=== PATIENT | female | born 2000 | race Caucasian/White ===

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

== ENCOUNTER 2020-03-27 10:01 | Emergency (ER) | payer BC ==
[2020-03-27 10:11] VITALS: BP 123/84; PULSE 69
[2020-03-27] MEDS ORDERED: Ondansetron 4 MG/2 ML SDV IVPUSH ONE (10:36)
[2020-03-27] MEDS ORDERED: HYDROmorphone 0.5 MG/0.5 ML Syringe IVPUSH ONE (10:37)
--- NOTE | 2020-03-27 10:38 | EDM.PDOC ---
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 She states this started at 0700 this morning and has been constant in nature. She states it radiates into her pelvis and describes the pain as sharp and stabbing. She has not taken anything for this pain. She was diagnosed with a 7.9 cm ovarian cyst in June of 2018 and says it feels like the same type of pain. She is unaware of where she is at in her cycle, but admits to getting her Depo shot on the 22 of March. She denies any risky sexual behavior, the possibility of being , or a possible STI. She was seen one week ago by Wendy Padilla for an unknown reason and was prescribed an antibiotic she can't remember. She believes the antibiotic is used for cystitis/nephritis. She denies any frequency, urgency, dysuria, fever, chills, diarrhea, nausea. - Related Data Allergies Allergy/AdvReac Type Severity Reaction Status Date / Time No Known Allergies Allergy Verified 03/27/20 10:11 Home Meds: Home Meds medroxyPROGESTERone Acetate [Depo-Provera] 150 mg IM ASDIRECTED 06/16/18 [History] traMADol [Ultram] 50 - 100 mg PO Q6H PRN #6 tab 03/27/20 [Rx] Past Medical History - Past Health History Medical/Surgical History: Denies Medical/Surgical History Genitourinary History: Reports: Other (See Below) Other Genitourinary History: ovarian cyst Social & Family History - Tobacco Use Tobacco Use Status *Q: Never Tobacco User Second Hand Smoke Exposure: No - Caffeine Use Caffeine Use: Reports: Coffee Caffeine Use Comment: drinks coffee once a month - Recreational Drug Use Recreational Drug Use: No ED ROS GENERAL - Review of Systems Constitutional: Denies: Fever, Chills, Fatigue HEENT: Reports: No Symptoms Respiratory: Denies: Shortness of Breath Cardiovascular: Denies: Chest Pain Endocrine: Reports: No Symptoms GI/Abdominal: Reports: Abdominal Pain (Lower right quadrant pain that started this morning at 0700. She states it is the same type of pain as when she was diangosed with an ovarian cyst. ). Denies: Constipation, Nausea, Vomiting : Denies: Discharge, Dysuria, Frequency, Hematuria, Pain, Urgency Musculoskeletal: Reports: No Symptoms Skin: Reports: No Symptoms Neurological: Reports: No Symptoms Psychiatric: Reports: No Symptoms Hematologic/Lymphatic: Reports: No Symptoms Immunologic: Reports: No Symptoms ED EXAM, GI/ABD - Physical Exam Exam: See Below Exam Limited By: No Limitations General Appearance: Alert, WD/WN, No Apparent Distress Head: Atraumatic, Normocephalic Neck: Normal Inspection, Supple, Non-Tender, Full Range of Motion Respiratory/Chest: No Respiratory Distress, Lungs Clear, Normal Breath Sounds, No Accessory Muscle Use, Chest Non-Tender Cardiovascular: Normal Peripheral Pulses, Regular Rate, Rhythm, No Edema, No Gallop, No JVD, No Murmur, No Rub GI/Abdominal Exam: Normal Bowel Sounds, Soft, No Organomegaly, No Distention, No Mass, Tender (Patient is mildly tender in her right lower quadrant to palpation. ) Back Exam: CVA Tenderness (R) (Mild CVA tenderness. Patient is tender to percussion to lower right back. ) Extremities: Normal Inspection, Normal Range of Motion, Non-Tender, Normal Capillary Refill, No Pedal Edema Neurological: Alert, Oriented, CN II-XII Intact, Normal Cognition, Normal Gait, No Motor/Sensory Deficits Psychiatric: Normal Affect, Normal Mood Skin Exam: Warm, Dry, Intact, Normal Color, No Rash Lymphatic: No Adenopathy Course - Re-Assessments/Exams Free Text/Narrative Re-Assessment/Exam: 03/27/20 10:42 Michelle is a 20 year old female presenting to the ED with complaints of right lower quadrant abdominal pain. This started at 0700 this morning. She does have a history of ovarian cysts for which she had surgery in June of 2018. It was a 7.9 cm cyst. She states this is the same kind of pain as she had then. She is in the Depo shot and does not know where she is at in her cycle. She denies any possibility of or STI. We will get routine labs, lipase, UA and transv aginal US. Departure - Departure Disposition: Home, Self-Care 01 Clinical Impression: Pelvic pain - Discharge Information Prescriptions: traMADol [Ultram] 50 - 100 mg PO Q6H PRN #6 tab PRN Reason: Pain Referrals: Wendy Padilla PA-C [Primary Care Provider] - 1 Day Forms: ED Department Discharge Additional Instructions: Go home and rest. Take tylenol or motrin for pain. If that does not help, try the tramadol. Follow up with Wendy Padilla tomorrow. Please return if you are worse. Sepsis Event Note (ED) - Evaluation Sepsis Screening Result: No Definite Risk <Michael Morales - Last Filed: 03/27/20 12:59> ED ROS GENERAL - Review of Systems Review Of Systems: See Below Course - Vital Signs Last Recorded V/S: Last Vital Signs Temp 99.0 F 03/27/20 10:08 Pulse 69 03/27/20 10:08 Resp 16 03/27/20 10:08 BP 123/84 03/27/20 10:08 Pulse Ox 97 03/27/20 10:08 - Orders/Labs/Meds Orders: Active Orders 24 hr Category Date Time Status Peripheral IV Care [RC] . DIRECTED Care 03/27/20 10:36 Active Sodium Chloride 0.9% [Saline Flush] Med 03/27/20 10:36 Active 10 ml FLUSH ASDIRECTED PRN ED Antiemetic Medication Reflex [OM.PC] Stat Oth 03/27/20 10:36 Ordered Peripheral IV Insertion Adult [OM.PC] Stat Oth 03/27/20 10:36 Ordered Medication Orders Sodium Chloride (Saline Flush) 10 ml FLUSH ASDIRECTED PRN PRN Reason: Keep Vein Open Last Admin: 03/27/20 11:41 Dose: 10 ml Documented by: Admin: 03/27/20 11:11 Dose: 10 ml Documented by: EMILIA Labs: Laboratory Tests 03/27/20 03/27/20 03/27/20 Range/Units 10:40 10:40 10:40 WBC 4.56 (3.98-10.04) K/mm3 RBC 5.08 (3.98-5.22) M/mm3 Hgb 14.9 (11.2-15.7) gm/dl Hct 44.3 (34.1-44.9) % MCV 87.2 (79.4-94.8) fl MCH 29.3 (25.6-32.2) pg MCHC 33.6 (32.2-35.5) g/dl RDW Std Deviation 40.2 (36.4-46.3) fL Plt Count 173 L (182-369) K/mm3 MPV 10.4 (9.4-12.3) fl Neut % (Auto) 45.2 (34.0-71.1) % Lymph % (Auto) 43.0 (19.3-51.7) % [place] % (Auto) 8.3 (4.7-12.5) % Eos % (Auto) 3.1 (0.7-5.8) Baso % (Auto) 0.4 (0.1-1.2) % Neut # (Auto) 2.06 (1.56-6.13) K/mm3 Lymph # (Auto) 1.96 (1.18-3.74) K/mm3 [place] # (Auto) 0.38 H (0.24-0.36) K/mm3 Eos # (Auto) 0.14 (0.04-0.36) K/mm3 Baso # (Auto) 0.02 (0.01-0.08) K/mm3 Sodium 143 (136-145) mEq/L Potassium 3.8 (3.5-5.1) mEq/L Chloride 109 H (98-107) mEq/L Carbon Dioxide 24 (21-32) mEq/L Anion Gap 13.8 (5-15) BUN 10 (7-18) mg/dL Creatinine 0.9 (0.55-1.02) mg/dL Est Cr Clr Drug Dosing TNP Estimated GFR (MDRD) > 60 (>60) mL/min BUN/Creatinine Ratio 11.1 L (14-18) Glucose 83 (74-106) mg/dL Calcium 9.2 (8.5-10.1) mg/dL Total Bilirubin 0.7 (0.2-1.0) mg/dL AST 14 L (15-37) U/L ALT 18 (14-59) U/L Alkaline Phosphatase 48 (46-116) U/L Total Protein 7.3 (6.4-8.2) g/dl Albumin 4.3 (3.4-5.0) g/dl Globulin 3.0 gm/dL Albumin/Globulin Ratio 1.4 (1-2) Lipase 99 (73-393) U/L HCG, Qual Negative (NEGATIVE) Urine Color (Yellow) Urine Appearance (Clear) Urine pH (5.0-8.0) Ur Specific [place] (1.005-1.030) Urine Protein (Negative) Urine Glucose (UA) (Negative) Urine Ketones (Negative) Urine Occult Blood (Negative) Urine Nitrite (Negative) Urine Bilirubin (Negative) Urine Urobilinogen (0.2-1.0) Ur Leukocyte Esterase (Negative) Urine RBC (0-5) /hpf Urine WBC (0-5) /hpf Ur Squamous Epith Cells (0-5) /hpf Urine Bacteria (FEW) /hpf Urine Mucus (FEW) /hpf 03/27/20 Range/Units 11:22 WBC (3.98-10.04) K/mm3 RBC (3.98-5.22) M/mm3 Hgb (11.2-15.7) gm/dl Hct (34.1-44.9) % MCV (79.4-94.8) fl MCH (25.6-32.2) pg MCHC (32.2-35.5) g/dl RDW Std Deviation (36.4-46.3) fL Plt Count (182-369) K/mm3 MPV (9.4-12.3) fl Neut % (Auto) (34.0-71.1) % Lymph % (Auto) (19.3-51.7) % [place] % (Auto) (4.7-12.5) % Eos % (Auto) (0.7-5.8) Baso % (Auto) (0.1-1.2) % Neut # (Auto) (1.56-6.13) K/mm3 Lymph # (Auto) (1.18-3.74) K/mm3 [place] # (Auto) (0.24-0.36) K/mm3 Eos # (Auto) (0.04-0.36) K/mm3 Baso # (Auto) (0.01-0.08) K/mm3 Sodium (136-145) mEq/L Potassium (3.5-5.1) mEq/L Chloride (98-107) mEq/L Carbon Dioxide (21-32) mEq/L Anion Gap (5-15) BUN (7-18) mg/dL Creatinine (0.55-1.02) mg/dL Est Cr Clr Drug Dosing Estimated GFR (MDRD) (>60) mL/min BUN/Creatinine Ratio (14-18) Glucose (74-106) mg/dL Calcium (8.5-10.1) mg/dL Total Bilirubin (0.2-1.0) mg/dL AST (15-37) U/L ALT (14-59) U/L Alkaline Phosphatase (46-116) U/L Total Protein (6.4-8.2) g/dl Albumin (3.4-5.0) g/dl Globulin gm/dL Albumin/Globulin Ratio (1-2) Lipase (73-393) U/L HCG, Qual (NEGATIVE) Urine Color Yellow (Yellow) Urine Appearance Clear (Clear) Urine pH 6.0 (5.0-8.0) Ur Specific [place] > or = 1.030 (1.005-1.030) Urine Protein 2+ H (Negative) Urine Glucose (UA) Negative (Negative) Urine Ketones Negative (Negative) Urine Occult Blood Negative (Negative) Urine Nitrite Negative (Negative) Urine Bilirubin Negative (Negative) Urine Urobilinogen 0.2 (0.2-1.0) Ur Leukocyte Esterase Negative (Negative) Urine RBC 0-5 (0-5) /hpf Urine WBC 0-5 (0-5) /hpf Ur Squamous Epith Cells 0-5 (0-5) /hpf Urine Bacteria Few (FEW) /hpf Urine Mucus Few (FEW) /hpf Meds: Medications Generic Name Dose Route Start Last Admin Trade Name Freq PRN Reason Stop Dose Admin Sodium Chloride 10 ml 03/27/20 10:36 03/27/20 11:41 Saline Flush FLUSH 10 ml ASDIRECTED PRN Administration Keep Vein Open Discontinued Medications Generic Name Dose Route Start Last Admin Trade Name Freq PRN Reason Stop Dose Admin Hydromorphone HCl 0.5 mg 03/27/20 10:37 03/27/20 11:10 Dilaudid IVPUSH 03/27/20 10:38 0.5 mg ONETIME ONE Administration Ondansetron HCl 4 mg 03/27/20 10:36 03/27/20 11:15 Zofran IVPUSH 03/27/20 10:37 Not Given ONETIME ONE - Re-Assessments/Exams Free Text/Narrative Re-Assessment/Exam: 03/27/20 12:54 I examined the patient myself and I agree with Ange's assessment and plan. I ordered an IV saline lock, labs, UA, something for pain and an US. Her CBC and CMP look good. Her UA shows no UTI. Her HCG is negative. Her US shows dilated endometrial cavity most likely representing blood. No additional abnormality i s appreciated on pelvic US study. Departure - Departure Time of Disposition: 13:00 Condition: Good - Discharge Information *PRESCRIPTION DRUG MONITORING PROGRAM REVIEWED*: Not Applicable *COPY OF PRESCRIPTION DRUG MONITORING REPORT IN PATIENT CHARMAINE: Not Applicable Sepsis Event Note (ED) - Focused Exam Vital Signs: Vital Signs Temp Pulse Resp BP Pulse Ox 03/27/20 10:08 99.0 F 69 16 123/84 97 - My Orders Last 24 Hours: My Active Orders 03/27/20 10:36 Peripheral IV Care [RC] . DIRECTED Sodium Chloride 0.9% [Saline Flush] 10 ml FLUSH ASDIRECTED PRN ED Antiemetic Medication Reflex [OM.PC] Stat Peripheral IV Insertion Adult [OM.PC] Stat - Assessment/Plan Last 24 Hours: My Active Orders 03/27/20 10:36 Peripheral IV Care [RC] . DIRECTED Sodium Chloride 0.9% [Saline Flush] 10 ml FLUSH ASDIRECTED PRN ED Antiemetic Medication Reflex [OM.PC] Stat Peripheral IV Insertion Adult [OM.PC] Stat
[2020-03-27] MEDS: Sodium Chloride 0.9% 10 ML Syringe FLUSH PRN ×2 (11:11→11:41)
--- NOTE | 2020-03-27 12:40 | US ---
Pelvic ultrasound: Multiple real-time images were obtained transvaginally. Findings: Hypoechoic area is seen within the endometrial cavity presumably due to blood or other complicated fluid. This finding measures about 2.5 cm x 1.3 cm x 1.4 cm. No myometrial abnormality is appreciated. Uterus is retroverted. Follicles are noted within both ovaries. No larger cyst or solid abnormality is appreciated within the ovaries. No free fluid is seen. Measurements: Uterus: Length 6.2 cm, AP height 3.8 cm, transverse width 6.3 cm Right ovary: 1.6 x 3.8 x 1.8 cm Left ovary: 1.3 x 2.6 x 1.8 cm Impression: 1. Dilated endometrial cavity most likely representing blood. 2. No additional abnormality is appreciated on pelvic ultrasound study. Diagnostic code #3
== END 2020-03-27 13:05 | disposition home or self-care (01) ==
LOC: JD.ED 10:01
DX: R10.2 Pelvic and perineal pain (principal)
CPT/HCPCS: 36415; 76830; 80053; 81001; 83690; 84703; 85025; 96374; 99284; J1170; 99283

== ENCOUNTER 2020-04-04 11:18 | Emergency (ER) | payer BC ==
[2020-04-04 11:29] VITALS: BP 134/74; PULSE 72
--- NOTE | 2020-04-04 11:45 | EDM.PDOC ---
ED HPI GENERAL MEDICAL PROBLEM - General Chief Complaint: Abdominal Pain Stated Complaint: ABDOMINAL PAIN Time Seen by Provider: 04/04/20 11:45 - History of Present Illness INITIAL COMMENTS - FREE TEXT/NARRATIVE: 20-year-old female presents the emergency room with abdominal pain. Patient was seen here about a week ago and after this appointment scheduled with gynecological evaluation this is in another week and 1/2 to 2 weeks. The patient was doing good the last several days however this morning she awoke with right lower quadrant pain and some nausea and vomiting she vomited about 4 times and the pain got better as did the nausea and vomiting. She did call her medical review coordinator office who recommended she come into the emergency room for evaluation as it sounded like an appendicitis. At this point she is doing much better. Patient has a history of ovarian cysts and had one surgically removed about a year and a half ago. She had an ultrasound done about a week ago here in the emergency department that showed normal ovaries there was some possible blood within the uterine cavity endometrium look normal. Bilateral Lower Abdomen Pain Score (Numeric/FACES): 7 - Related Data Allergies Allergy/AdvReac Type Severity Reaction Status Date / Time Influenza Virus Vaccines Allergy Severe Swelling Verified 04/04/20 11:30 Home Meds: Home Meds medroxyPROGESTERone Acetate [Depo-Provera] 150 mg IM ASDIRECTED 06/16/18 [History] Past Medical History - Past Health History Medical/Surgical History: Denies Medical/Surgical History Genitourinary History: Reports: Other (See Below) Other Genitourinary History: ovarian cyst - Past Surgical History Female Surgical History: Reports: Other (See Below) Other Female Surgeries/Procedures: Ovarian Cyst removed Social & Family History - Tobacco Use Tobacco Use Status *Q: Never Tobacco User - Caffeine Use Caffeine Use: Reports: Soda Caffeine Use Comment: drinks coffee once a month - Recreational Drug Use Recreational Drug Use: No ED ROS GENERAL - Review of Systems Review Of Systems: See Below Constitutional: Reports: No Symptoms HEENT: Reports: No Symptoms Respiratory: Reports: No Symptoms Cardiovascular: Reports: No Symptoms GI/Abdominal: Reports: Abdominal Pain, Nausea, Vomiting. Denies: Constipation, Diarrhea : Reports: No Symptoms Musculoskeletal: Reports: No Symptoms Neurological: Reports: No Symptoms ED EXAM, GENERAL - Physical Exam Exam: See Below Exam Limited By: No Limitations General Appearance: Alert, No Apparent Distress Head: Atraumatic, Normocephalic Neck: Normal Inspection, Supple, Non-Tender, Full Range of Motion Respiratory/Chest: No Respiratory Distress, Lungs Clear, Normal Breath Sounds Cardiovascular: Regular Rate, Rhythm, No Edema, No Murmur GI/Abdominal: Normal Bowel Sounds, Soft, Tender, Other (She has some mild right lower quadrant discomfort with palpation without rigidity rebound or guarding). No: Non-Tender, Guarding, Rigid, Rebound Back Exam: Normal Inspection. No: CVA Tenderness (L), CVA Tenderness (R) Neurological: Alert, Oriented, Normal Cognition Course - Vital Signs Last Recorded V/S: Last Vital Signs Temp 36.9 C 04/04/20 11:26 Pulse 72 04/04/20 11:26 Resp 16 04/04/20 11:26 BP 134/74 04/04/20 11:26 Pulse Ox 99 04/04/20 11:26 - Orders/Labs/Meds Orders: Active Orders 24 hr Category Date Time Status COMPREHENSIVE METABOLIC PN,CMP [CHEM] Stat Lab 04/04/20 12:30 Stop Req Labs: Laboratory Tests 04/04/20 04/04/20 04/04/20 Range/Units 12:25 12:25 12:30 WBC 6.00 (3.98-10.04) K/mm3 RBC 4.83 (3.98-5.22) M/mm3 Hgb 14.2 (11.2-15.7) gm/dl Hct 42.6 (34.1-44.9) % MCV 88.2 (79.4-94.8) fl MCH 29.4 (25.6-32.2) pg MCHC 33.3 (32.2-35.5) g/dl RDW Std Deviation 41.1 (36.4-46.3) fL Plt Count 198 (182-369) K/mm3 MPV 11.1 (9.4-12.3) fl Neut % (Auto) 54.7 (34.0-71.1) % Lymph % (Auto) 33.2 (19.3-51.7) % [place] % (Auto) 8.8 (4.7-12.5) % Eos % (Auto) 2.8 (0.7-5.8) Baso % (Auto) 0.5 (0.1-1.2) % Neut # (Auto) 3.28 (1.56-6.13) K/mm3 Lymph # (Auto) 1.99 (1.18-3.74) K/mm3 [place] # (Auto) 0.53 H (0.24-0.36) K/mm3 Eos # (Auto) 0.17 (0.04-0.36) K/mm3 Baso # (Auto) 0.03 (0.01-0.08) K/mm3 Sodium (136-145) mEq/L Potassium (3.5-5.1) mEq/L Chloride (98-107) mEq/L Carbon Dioxide (21-32) mEq/L Anion Gap (5-15) BUN (7-18) mg/dL Creatinine (0.55-1.02) mg/dL Est Cr Clr Drug Dosing mL/min Estimated GFR (MDRD) (>60) mL/min BUN/Creatinine Ratio (14-18) Glucose (74-106) mg/dL Calcium (8.5-10.1) mg/dL Magnesium (1.8-2.4) mg/dl Total Bilirubin (0.2-1.0) mg/dL AST (15-37) U/L ALT (14-59) U/L Alkaline Phosphatase (46-116) U/L Creatine Kinase (26-192) U/L Troponin I (0.00-0.056) ng/mL NT-Pro-B Natriuret Pep (0-125) pg/mL Total Protein (6.4-8.2) g/dl Albumin (3.4-5.0) g/dl Globulin gm/dL Albumin/Globulin Ratio (1-2) Urine Color Yellow (Yellow) Urine Appearance Clear (Clear) Urine pH 7.0 (5.0-8.0) Ur Specific [place] 1.020 (1.005-1.030) Urine Protein Negative (Negative) Urine Glucose (UA) Negative (Negative) Urine Ketones Negative (Negative) Urine Occult Blood Trace-intact H (Negative) Urine Nitrite Negative (Negative) Urine Bilirubin Negative (Negative) Urine Urobilinogen 0.2 (0.2-1.0) Ur Leukocyte Esterase Negative (Negative) Urine RBC 0-5 (0-5) /hpf Urine WBC 0-5 (0-5) /hpf Ur Epithelial Cells 0-5 (0-5) /hpf Urine Bacteria Rare (FEW) /hpf Urine Mucus Few (FEW) /hpf Urine HCG, Qual Negative (NEGATIVE) 04/04/20 04/04/20 Range/Units 12:30 12:30 WBC (3.98-10.04) K/mm3 RBC (3.98-5.22) M/mm3 Hgb (11.2-15.7) gm/dl Hct (34.1-44.9) % MCV (79.4-94.8) fl MCH (25.6-32.2) pg MCHC (32.2-35.5) g/dl RDW Std Deviation (36.4-46.3) fL Plt Count (182-369) K/mm3 MPV (9.4-12.3) fl Neut % (Auto) (34.0-71.1) % Lymph % (Auto) (19.3-51.7) % [place] % (Auto) (4.7-12.5) % Eos % (Auto) (0.7-5.8) Baso % (Auto) (0.1-1.2) % Neut # (Auto) (1.56-6.13) K/mm3 Lymph # (Auto) (1.18-3.74) K/mm3 [place] # (Auto) (0.24-0.36) K/mm3 Eos # (Auto) (0.04-0.36) K/mm3 Baso # (Auto) (0.01-0.08) K/mm3 Sodium 146 H (136-145) mEq/L Potassium 3.5 (3.5-5.1) mEq/L Chloride 108 H (98-107) mEq/L Carbon Dioxide 28 (21-32) mEq/L Anion Gap 13.5 (5-15) BUN 8 (7-18) mg/dL Creatinine 0.9 (0.55-1.02) mg/dL Est Cr Clr Drug Dosing 61.05 mL/min Estimated GFR (MDRD) > 60 (>60) mL/min BUN/Creatinine Ratio 8.9 L (14-18) Glucose 79 (74-106) mg/dL Calcium 9.4 (8.5-10.1) mg/dL Magnesium 2.2 (1.8-2.4) mg/dl Total Bilirubin 0.6 (0.2-1.0) mg/dL AST 15 (15-37) U/L ALT 25 (14-59) U/L Alkaline Phosphatase 47 (46-116) U/L Creatine Kinase 55 (26-192) U/L Troponin I < 0.017 (0.00-0.056) ng/mL NT-Pro-B Natriuret Pep 40 (0-125) pg/mL Total Protein 7.3 (6.4-8.2) g/dl Albumin 4.3 (3.4-5.0) g/dl Globulin 3.0 gm/dL Albumin/Globulin Ratio 1.4 (1-2) Urine Color (Yellow) Urine Appearance (Clear) Urine pH (5.0-8.0) Ur Specific [place] (1.005-1.030) Urine Protein (Negative) Urine Glucose (UA) (Negative) Urine Ketones (Negative) Urine Occult Blood (Negative) Urine Nitrite (Negative) Urine Bilirubin (Negative) Urine Urobilinogen (0.2-1.0) Ur Leukocyte Esterase (Negative) Urine RBC (0-5) /hpf Urine WBC (0-5) /hpf Ur Epithelial Cells (0-5) /hpf Urine Bacteria (FEW) /hpf Urine Mucus (FEW) /hpf Urine HCG, Qual (NEGATIVE) Meds: Medications Discontinued Medications Generic Name Dose Route Start Last Admin Trade Name Freq PRN Reason Stop Dose Admin Acetaminophen 650 mg 04/04/20 12:31 Tylenol PO Q6H PRN Pain (Mild 1-3)/fever Albuterol/Ipratropium 3 ml 04/04/20 12:31 Duoneb 3.0-0.5 Mg/3 Ml NEB Q4H PRN Shortness Of Breath/wheezing Docusate Sodium 100 mg 04/04/20 12:31 Colace PO BID PRN Constipation Heparin Sodium (Porcine) 5,000 units 04/04/20 12:45 Heparin Sodium SUBCUT Q8H BELLA Hydralazine HCl 10 mg 04/04/20 12:41 Apresoline IVPUSH Q4H PRN Hypertension Lactated Ringer's 1,000 mls @ 999 mls/hr 04/04/20 12:01 04/04/20 12:34 Ringers, Lactated IV 04/04/20 13:01 999 mls/hr .BOLUS ONE Administration Sodium Chloride 1,000 mls @ 80 mls/hr 04/04/20 12:45 Normal Saline IV ASDIRECTED BELLA Promethazine HCl 12.5 mg/ 50.5 mls @ 100 mls/hr 04/04/20 12:31 Sodium Chloride IV Q6H PRN Nausea/Vomiting Morphine Sulfate 2 mg 04/04/20 12:31 Morphine IVPUSH 04/05/20 12:35 Q4H PRN Pain (severe 7-10) Naloxone HCl 0.4 mg 04/04/20 12:41 Narcan IVPUSH 04/04/20 12:42 ONETIME ONE Ondansetron HCl 4 mg 04/04/20 12:01 04/04/20 12:31 Zofran IVPUSH 04/04/20 12:02 4 mg ONETIME ONE Administration - Re-Assessments/Exams Free Text/Narrative Re-Assessment/Exam: 04/04/20 12:24 Her exam is fairly assuring however we will check labs and give her a liter of fluid as she had some significant vomiting this morning. 04/04/20 13:43 Her labs look good. The patient is doing fine she received a liter of fluid and some Zofran we will discharge home at this point Departure - Departure Time of Disposition: 13:45 Disposition: Home, Self-Care 01 Clinical Impression: Abdominal pain, Pelvic pain - Discharge Information Referrals: Wendy Padilla PA-C [Primary Care Provider] - Forms: ED Department Discharge Additional Instructions: Return to the emergency room with any questions problems or worsening symptoms. Push lots of fluids. Follow-up with Dr. Bradford as scheduled. Use Tylenol and/or Motrin as needed for pain. Sepsis Event Note (ED) - Evaluation Sepsis Screening Result: No Definite Risk - Focused Exam Vital Signs: Vital Signs Temp Pulse Resp BP Pulse Ox 04/04/20 11:26 36.9 C 72 16 134/74 99 - My Orders Last 24 Hours: My Active Orders 04/04/20 12:30 COMPREHENSIVE METABOLIC PN,CMP [CHEM] Stat - Assessment/Plan Last 24 Hours: My Active Orders 04/04/20 12:30 COMPREHENSIVE METABOLIC PN,CMP [CHEM] Stat
[2020-04-04] MEDS ORDERED: Ondansetron 4 MG/2 ML SDV IVPUSH ONE (12:01)
[2020-04-04] MEDS ORDERED: Lactated Ringers 1,000 ML IV ONE (12:01)
[2020-04-04] MEDS ORDERED: Promethazine 12.5 MG in Sodium Chloride 0.9% 50 ML IV PRN (12:31)
[2020-04-04] MEDS ORDERED: Acetaminophen 325 MG Tab PO PRN (12:31)
[2020-04-04] MEDS ORDERED: Morphine 2 MG/ML SYRINGE IVPUSH PRN (12:31)
[2020-04-04] MEDS ORDERED: Docusate Sodium 100 MG Cap PO PRN (12:31)
[2020-04-04] MEDS ORDERED: Albuterol/Ipratropium 3.0-0.5 MG/3 ML Neb Soln NEB PRN (12:31)
[2020-04-04] MEDS ORDERED: Naloxone 0.4 MG/ML SDV IVPUSH ONE (12:41)
[2020-04-04] MEDS ORDERED: hydrALAZINE 20 MG/ML SDV IVPUSH PRN (12:41)
[2020-04-04] MEDS ORDERED: Heparin Sodium 5,000 Units/ML Vial SUBCUT SCH (12:45)
[2020-04-04] MEDS ORDERED: Sodium Chloride 0.9% 1,000 ML IV SCH (12:45)
== END 2020-04-04 14:20 | disposition home or self-care (01) ==
LOC: JD.ED 11:18
DX: R10.2 Pelvic and perineal pain (principal); R11.2 Nausea with vomiting, unspecified; Z88.7 Allergy status to serum and vaccine
CPT/HCPCS: 36415; 80053; 81001; 81025; 82550; 83735; 84484; 85025; 96374; 99284; J2405; J7120

== ENCOUNTER 2020-06-14 10:33 | Emergency (ER) | payer BC ==
[2020-06-14 10:41] VITALS: BP 130/93
--- NOTE | 2020-06-14 11:16 | EDM.PDOC ---
ED HPI GENERAL MEDICAL PROBLEM - General Chief Complaint: Chest Pain Stated Complaint: CHEST PAIN AND ARM PAIN Time Seen by Provider: 06/14/20 10:38 Source of Information: Reports: Patient History Limitations: Reports: No Limitations - History of Present Illness INITIAL COMMENTS - FREE TEXT/NARRATIVE: 20-year-old female presents the emergency department complaints of chest pain that started last evening. The patient states she was laying in bed when she felt a stabbing pain to her left sternal area. Patient states she felt at that time she was unable to take a deep breath. She states that shortly thereafter the pain went away and she went to sleep for the night. She states that she got up and ambulated to the bathroom and by the time she got back to bed she was very short of breath. Stated she could not take a deep breath, and the chest pain returned. She states she felt like an elephant was sitting on her chest. She states that then resolved again and she went back to sleep and woke this morning and had another episode. She states she called her primary care physician and her physician recommended that she be seen in the emergency department. Of note the patient has no significant medical history. She denies any cardiac history. She states that she uses Depo-Provera for control and she is not a smoker. States that last night she developed runny nose and the start of some head congestion however denies having any cough. She denies nausea, vomiting or diarrhea. She denies headache. Chest Pain Score (Numeric/FACES): 6 - Related Data Allergies Allergy/AdvReac Type Severity Reaction Status Date / Time Influenza Virus Vaccines Allergy Severe Swelling Verified 06/14/20 10:41 Home Meds: Home Meds medroxyPROGESTERone Acetate [Depo-Provera] 150 mg IM ASDIRECTED 06/16/18 [History] Past Medical History - Past Health History Medical/Surgical History: Denies Medical/Surgical History Genitourinary History: Reports: Other (See Below) Other Genitourinary History: ovarian cyst - Infectious Disease History Infectious Disease History: Reports: Chicken Pox, Novel Coronavirus - Past Surgical History Female Surgical History: Reports: Other (See Below) Other Female Surgeries/Procedures: Ovarian Cyst removed Social & Family History - Tobacco Use Tobacco Use Status *Q: Never Tobacco User - Caffeine Use Caffeine Use: Reports: Coffee, Energy Drinks, Soda, Tea Caffeine Use Comment: drinks coffee once a month - Recreational Drug Use Recreational Drug Use: No ED ROS GENERAL - Review of Systems Review Of Systems: Comprehensive ROS is negative, except as noted in HPI. ED EXAM, GENERAL - Physical Exam Exam: See Below Exam Limited By: No Limitations General Appearance: Alert, WD/WN, No Apparent Distress Ears: Normal External Exam, Hearing Grossly Normal Nose: Normal Inspection Throat/Mouth: Normal Inspection, Normal Lips, Normal Voice, No Airway Compromise Head: Atraumatic, Normocephalic Neck: Normal Inspection, Supple, Non-Tender, Full Range of Motion Respiratory/Chest: No Respiratory Distress, Lungs Clear, Normal Breath Sounds, No Accessory Muscle Use. No: Chest Non-Tender (tender with palpation and deep breathing) Cardiovascular: Normal Peripheral Pulses, Regular Rate, Rhythm, No Edema, No Murmur Peripheral Pulses: 2+: Radial (L), Radial (R) GI/Abdominal: Normal Bowel Sounds, Soft, Non-Tender, No Distention (Female) Exam: Deferred Rectal (Female) Exam: Deferred Back Exam: Normal Inspection, Full Range of Motion Extremities: Normal Inspection, Normal Range of Motion, Non-Tender, No Pedal Edema, Normal Capillary Refill Neurological: Alert, Oriented, Normal Cognition Psychiatric: Normal Affect, Normal Mood Skin Exam: Warm, Dry, Intact, Normal Color, No Rash Lymphatic: No Adenopathy #1 Interpretation EKG Date: 06/14/20 Time: 10:38 Rhythm: NSR Rate (Beats/Min): 79 [place]: Normal P-Wave: Present QRS: Normal ST-T: Normal QT: Normal Comparison: NA - No Prior EKG EKG Interpretation Comments: Per Dr Morales interpretation: Sinus rhythm at 79; left atrial enlargement, consider biatrial enlargement Course - Vital Signs Text/Narrative:: She denies having any increased stressors in her life at this time. Denies any anxiety or history of anxiety. It is unlikely that this patient is having a cardiac event however I have ordered labs, EKG, chest x-ray to rule out. The patient denies any chest pain or pressure at this time. Last Recorded V/S: Last Vital Signs Temp 98.0 F 06/14/20 10:38 Pulse 81 06/14/20 10:38 Resp 18 06/14/20 10:38 BP 130/93 H 06/14/20 10:38 Pulse Ox 99 06/14/20 10:38 - Orders/Labs/Meds Orders: Active Orders 24 hr Category Date Time Status EKG Documentation Completion [RC] STAT Care 06/14/20 10:54 Active Labs: Laboratory Tests 06/14/20 06/14/20 06/14/20 Range/Units 11:00 11:00 11:00 WBC 5.18 (3.98-10.04) K/mm3 RBC 4.70 (3.98-5.22) M/mm3 Hgb 13.9 (11.2-15.7) gm/dl Hct 42.0 (34.1-44.9) % MCV 89.4 (79.4-94.8) fl MCH 29.6 (25.6-32.2) pg MCHC 33.1 (32.2-35.5) g/dl RDW Std Deviation 41.7 (36.4-46.3) fL Plt Count 164 L (182-369) K/mm3 MPV 10.8 (9.4-12.3) fl Neut % (Auto) 53.3 (34.0-71.1) % Lymph % (Auto) 36.1 (19.3-51.7) % [place] % (Auto) 7.7 (4.7-12.5) % Eos % (Auto) 2.5 (0.7-5.8) Baso % (Auto) 0.4 (0.1-1.2) % Neut # (Auto) 2.76 (1.56-6.13) K/mm3 Lymph # (Auto) 1.87 (1.18-3.74) K/mm3 [place] # (Auto) 0.40 H (0.24-0.36) K/mm3 Eos # (Auto) 0.13 (0.04-0.36) K/mm3 Baso # (Auto) 0.02 (0.01-0.08) K/mm3 D-Dimer, Quantitative < 0.19 L (0.19-0.50) mg/L Sodium 142 (136-145) mEq/L Potassium 3.8 (3.5-5.1) mEq/L Chloride 107 (98-107) mEq/L Carbon Dioxide 23 (21-32) mEq/L Anion Gap 15.8 H (5-15) BUN 10 (7-18) mg/dL Creatinine 1.0 (0.55-1.02) mg/dL Est Cr Clr Drug Dosing 52.69 mL/min Estimated GFR (MDRD) > 60 (>60) mL/min BUN/Creatinine Ratio 10.0 L (14-18) Glucose 102 (74-106) mg/dL Calcium 9.0 (8.5-10.1) mg/dL Magnesium 2.1 (1.8-2.4) mg/dl Total Bilirubin 0.7 (0.2-1.0) mg/dL AST 17 (15-37) U/L ALT 22 (14-59) U/L Alkaline Phosphatase 41 L (46-116) U/L Troponin I < 0.017 (0.00-0.056) ng/mL C-Reactive Protein <0.2 (<1.0) mg/dL Total Protein 7.1 (6.4-8.2) g/dl Albumin 4.2 (3.4-5.0) g/dl Globulin 2.9 gm/dL Albumin/Globulin Ratio 1.5 (1-2) - Re-Assessments/Exams Free Text/Narrative Re-Assessment/Exam: 06/14/20 11:33 Radiologist impression 2 view of the chest: Nothing acute is appreciated on 2 view of the chest 06/14/20 11:58 Hematology is essentially unremarkable other than a platelet count of 164,000, D-dimer is less than 0.19, chemistry reveals an anion gap of 15.8, BUN 10, creatinine 1.0, alk phos 41, troponin less than 0.017, C-reactive protein less than 0.2 At this time it is likely the patient is having pleuritic type of chest pain. She will be discharged home with recommendations that she take ibuprofen 400 mg every 6 hours for the next 48 hours. Or Aleve 1 tab every 12 hours for the next 48 hours. Departure - Departure Time of Disposition: 11:58 Disposition: Home, Self-Care 01 Condition: Good Clinical Impression: Chest pain, atypical Instructions: Nonspecific Chest Pain, Adult, [id number] Referrals: Wendy Padilla PA-C [Primary Care Provider] - Forms: ED Department Discharge Additional Instructions: You were seen in the emergency department today with complaints of chest pain that started last evening. An EKG, chest x-ray and lab work was completed. This was all unremarkable. It is likely you are having pain due to inflammation in the lining of your chest. Recommend that you take ibuprofen 400 mg every 6 hours for the next 48 hours to decrease inflammation or Aleve 1 tab every 12 hours for the next 48 hours. Be sure to take the medication with food. Should you not start to feel a decrease in your symptoms in the next week or so, I recommend that you follow-up with your primary care provider. Should your condition worsen or change do not hesitate returning to the emergency department. Sepsis Event Note (ED) - Evaluation Sepsis Screening Result: No Definite Risk - Focused Exam Vital Signs: Vital Signs Temp Pulse Resp BP Pulse Ox 06/14/20 10:38 98.0 F 81 18 130/93 H 99 - My Orders Last 24 Hours: My Active Orders 06/14/20 10:54 EKG Documentation Completion [RC] STAT - Assessment/Plan Last 24 Hours: My Active Orders 06/14/20 10:54 EKG Documentation Completion [RC] STAT
--- NOTE | 2020-06-14 11:27 | CR ---
Chest: PA and lateral views of the chest are obtained. Comparison: No prior study. Heart size and mediastinum are normal. Lungs are clear with no acute parenchymal change. Minimal tenting of the left hemidiaphragm is seen which is incidental. Minimal scoliosis is seen within the spine. No acute osseous abnormality is appreciated. Impression: 1. Nothing acute is appreciated on 2 view chest x-ray. Diagnostic code #2
[2020-06-14 12:29] VITALS: PULSE 71
== END 2020-06-14 12:20 | disposition home or self-care (01) ==
LOC: JD.ED 10:33
DX: R07.89 Other chest pain (principal); Z88.7 Allergy status to serum and vaccine
CPT/HCPCS: 36415; 71046; 71046-26; 80053; 83735; 84484; 85025; 85379; 86140; 93005; 93010; 99283; 99285-25

== ENCOUNTER 2020-08-09 11:03 | Emergency (ER) | payer BC ==
[2020-08-09 11:12] VITALS: BP 119/89; PULSE 71
--- NOTE | 2020-08-09 12:01 | EDM.PDOC ---
ED HPI GENERAL MEDICAL PROBLEM - General Chief Complaint: Gastrointestinal Problem Stated Complaint: RASH/DIARRHEA Time Seen by Provider: 08/09/20 11:09 Source of Information: Reports: Patient History Limitations: Reports: No Limitations - History of Present Illness INITIAL COMMENTS - FREE TEXT/NARRATIVE: 20-year-old female presents the emergency department today with complaints of diarrhea and a generalized rash all over her body. The patient states about 2 to 3 weeks ago she developed a sore throat she was seen in the clinic and a strep throat screen was completed which was negative however the patient was still treated with antibiotics. Approximately a week later she followed up in the clinic as her sore throat was not getting any better, so they reswabbed her which again came back negative and gave her another round of antibiotics. Patient states that about 3 days ago that she developed diarrhea and nausea. She denies any recent fever, chills, vomiting, abdominal pain, cough or urinary symptoms. She states she has had a decreased appetite and when she does try to eat anything it causes her to have diarrhea. She states over the course the past 2 days she has had 3-4 diarrhea stools per day. Patient states that she has lost 15 pounds in the past 2 days due to this. She states she has been trying to drink Gatorade to keep her electrolytes up. She states that she has started to have generalized rash that is forming on her arms and legs. She was seen at the walk-in clinic yesterday and prescribed triamcinolone cream to treat these however she states when she applied it it burned and worsened her symptoms. - Related Data Allergies Allergy/AdvReac Type Severity Reaction Status Date / Time Influenza Virus Vaccines Allergy Severe Swelling Verified 08/09/20 11:12 Home Meds: Home Meds medroxyPROGESTERone Acetate [Depo-Provera] 150 mg IM ASDIRECTED 06/16/18 [History] Cetirizine [ZyrTEC] 10 mg PO DAILY PRN 08/09/20 [History] Triamcinolone Acetonide [Triamcinolone Acetonide 0.1% Oint] 15 gm TOP BID 08/09/20 [History] Past Medical History - Past Health History Medical/Surgical History: Denies Medical/Surgical History Genitourinary History: Reports: Other (See Below) Other Genitourinary History: ovarian cyst - Infectious Disease History Infectious Disease History: Reports: Chicken Pox, Novel Coronavirus - Past Surgical History Female Surgical History: Reports: Other (See Below) Other Female Surgeries/Procedures: Ovarian Cyst removed Social & Family History - Tobacco Use Tobacco Use Status *Q: Never Tobacco User - Caffeine Use Caffeine Use: Reports: None Caffeine Use Comment: drinks coffee once a month - Recreational Drug Use Recreational Drug Use: No ED ROS GENERAL - Review of Systems Review Of Systems: Comprehensive ROS is negative, except as noted in HPI. ED EXAM, GI/ABD - Physical Exam Exam: See Below Exam Limited By: No Limitations General Appearance: Alert, WD/WN, No Apparent Distress Ears: Normal External Exam, Hearing Grossly Normal Nose: Normal Inspection Throat/Mouth: Normal Inspection, Normal Lips, Normal Oropharynx, Normal Voice, No Airway Compromise. No: Inflammation Head: Atraumatic, Normocephalic Neck: Normal Inspection, Supple, Non-Tender. No: Lymphadenopathy (L), Lymphadenopathy (R) Respiratory/Chest: No Respiratory Distress, Lungs Clear, Normal Breath Sounds, No Accessory Muscle Use, Chest Non-Tender Cardiovascular: Normal Peripheral Pulses, Regular Rate, Rhythm, No Edema, No Murmur GI/Abdominal Exam: Normal Bowel Sounds, Soft, Non-Tender, No Distention (Female) Exam: Deferred Rectal (Female) Exam: Deferred Back Exam: Normal Inspection Extremities: Normal Inspection, Normal Range of Motion, Non-Tender, No Pedal Edema, Normal Capillary Refill Neurological: Alert, Oriented, Normal Cognition Psychiatric: Normal Affect, Normal Mood Skin Exam: Warm, Dry, Intact, Normal Color, No Rash, Other (Patient has 2 pea- sized reddened areas noted to each of her upper anterior thighs. She also has one pea-sized reddened area noted to her right knee and 2 on her lower right leg. These do appear to me to be some sort of insect bite or mosquito bite. Patient states that they do itch.) Lymphatic: No Adenopathy Course - Vital Signs Text/Narrative:: Upon assessment. The patient is in no distress. Patient does point out which she considers generalized rash over her arms and legs however I only note a small reddened area on her proximal left middle finger that appears to be a mosquito bite. She then shows me her lower legs which she states have a rash all over them. I see to reddened bumps on her right lower leg. Which also appear to be as mosquito bite. Patient states that they are worse on her thighs however she is not wearing a gown so I will advise nursing staff to place her in a gown. Patient denies any abdominal pain. Her assessment is negative. She denies any pain with palpation of her abdomen. Denies any urinary symptoms. Patient's throat is unremarkable and she states that her throat is still sore. This is likely due to postnasal drip as she states she has been a little more congested with a runny nose. Advised her at this time to begin taking Zyrtec allergy medication daily as the sore throat is likely due to postnasal drip. I have ordered labs to include a CBC, CMP, C-reactive protein. I have also ordered a Covid swab on this patient. And stool studies to be obtained. Last Recorded V/S: Last Vital Signs Temp 98.3 F 08/09/20 11:09 Pulse 71 08/09/20 11:09 Resp 16 08/09/20 11:09 BP 119/89 08/09/20 11:09 Pulse Ox 98 08/09/20 11:09 - Orders/Labs/Meds Labs: Laboratory Tests 08/09/20 08/09/20 08/09/20 Range/Units 11:54 12:00 12:00 WBC 4.60 (3.98-10.04) K/mm3 RBC 5.06 (3.98-5.22) M/mm3 Hgb 15.2 (11.2-15.7) gm/dl Hct 45.3 H (34.1-44.9) % MCV 89.5 (79.4-94.8) fl MCH 30.0 (25.6-32.2) pg MCHC 33.6 (32.2-35.5) g/dl RDW Std Deviation 40.8 (36.4-46.3) fL Plt Count 152 L (182-369) K/mm3 MPV 10.6 (9.4-12.3) fl Neut % (Auto) 50.5 (34.0-71.1) % Lymph % (Auto) 38.0 (19.3-51.7) % [place] % (Auto) 8.3 (4.7-12.5) % Eos % (Auto) 2.6 (0.7-5.8) Baso % (Auto) 0.4 (0.1-1.2) % Neut # (Auto) 2.32 (1.56-6.13) K/mm3 Lymph # (Auto) 1.75 (1.18-3.74) K/mm3 [place] # (Auto) 0.38 H (0.24-0.36) K/mm3 Eos # (Auto) 0.12 (0.04-0.36) K/mm3 Baso # (Auto) 0.02 (0.01-0.08) K/mm3 Sodium 144 (136-145) mEq/L Potassium 4.2 (3.5-5.1) mEq/L Chloride 108 H (98-107) mEq/L Carbon Dioxide 22 (21-32) mEq/L Anion Gap 18.2 H (5-15) BUN 12 (7-18) mg/dL Creatinine 1.0 (0.55-1.02) mg/dL Est Cr Clr Drug Dosing 53.98 mL/min Estimated GFR (MDRD) > 60 (>60) mL/min BUN/Creatinine Ratio 12.0 L (14-18) Glucose 78 (70-99) mg/dL Calcium 9.4 (8.5-10.1) mg/dL Magnesium 2.2 (1.8-2.4) mg/dL Total Bilirubin 0.9 (0.2-1.0) mg/dL AST 13 L (15-37) U/L ALT 25 (14-59) U/L Alkaline Phosphatase 46 (46-116) U/L C-Reactive Protein <0.2 (<1.0) mg/dL Total Protein 7.7 (6.4-8.2) g/dl Albumin 4.6 (3.4-5.0) g/dl Globulin 3.1 gm/dL Albumin/Globulin Ratio 1.5 (1-2) Urine HCG, Qual (NEGATIVE) SARS-CoV-2 RNA (MARIEL) Negative (NEGATIVE) 08/09/20 Range/Units 13:23 WBC (3.98-10.04) K/mm3 RBC (3.98-5.22) M/mm3 Hgb (11.2-15.7) gm/dl Hct (34.1-44.9) % MCV (79.4-94.8) fl MCH (25.6-32.2) pg MCHC (32.2-35.5) g/dl RDW Std Deviation (36.4-46.3) fL Plt Count (182-369) K/mm3 MPV (9.4-12.3) fl Neut % (Auto) (34.0-71.1) % Lymph % (Auto) (19.3-51.7) % [place] % (Auto) (4.7-12.5) % Eos % (Auto) (0.7-5.8) Baso % (Auto) (0.1-1.2) % Neut # (Auto) (1.56-6.13) K/mm3 Lymph # (Auto) (1.18-3.74) K/mm3 [place] # (Auto) (0.24-0.36) K/mm3 Eos # (Auto) (0.04-0.36) K/mm3 Baso # (Auto) (0.01-0.08) K/mm3 Sodium (136-145) mEq/L Potassium (3.5-5.1) mEq/L Chloride (98-107) mEq/L Carbon Dioxide (21-32) mEq/L Anion Gap (5-15) BUN (7-18) mg/dL Creatinine (0.55-1.02) mg/dL Est Cr Clr Drug Dosing mL/min Estimated GFR (MDRD) (>60) mL/min BUN/Creatinine Ratio (14-18) Glucose (70-99) mg/dL Calcium (8.5-10.1) mg/dL Magnesium (1.8-2.4) mg/dL Total Bilirubin (0.2-1.0) mg/dL AST (15-37) U/L ALT (14-59) U/L Alkaline Phosphatase (46-116) U/L C-Reactive Protein (<1.0) mg/dL Total Protein (6.4-8.2) g/dl Albumin (3.4-5.0) g/dl Globulin gm/dL Albumin/Globulin Ratio (1-2) Urine HCG, Qual Negative (NEGATIVE) SARS-CoV-2 RNA (MARIEL) (NEGATIVE) - Re-Assessments/Exams Free Text/Narrative Re-Assessment/Exam: 08/09/20 12:56 Patient does have 2 pea-sized reddened areas that are raised noted to her bilateral anterior thighs. She also has 2 pea-sized reddened raised areas noted to her right lower leg. These do appear to be to me to some sort of insect bite or mosquito bite. She states that they itch. At this time I do not feel that she needs to be applying triamcinolone cream. She states that causes it to burn. Recommend that she take Benadryl every 6 hours as needed. I do not appreciate anything that I would consider to be rash like on her arms or legs. 08/09/20 13:00 Hematology reveals a WBC of 4.60, hemoglobin 15.2, hematocrit 45.3, platelet count 152 Chemistry reveals a sodium of 144, potassium 4.2, chloride 108, carbon dioxide 22, anion gap 18.2, BUN 12, creatinine 1.0, glucose 78, magnesium 2.2, AST 13, ALT 25, alk phos 46, C-reactive protein less than 0.2 At this time there is no infective process appreciated. Patient has still been unable to give us a stool sample. Will discharge her to home with an outpatient order for stool sample if she is able to bring us one from home. Until that time I will recommend that she start taking a probiotic daily. Also recommend that she stay away from all dairy products. 08/09/20 13:17 Pt is requesting a test as she states that there is a chance she could be . 08/09/20 13:30 Covid swab is negative. 08/09/20 14:17 Urine test is negative. She will be discharged home. Departure - Departure Time of Disposition: 13:39 Disposition: Home, Self-Care 01 Condition: Good Clinical Impression: Diarrhea - Discharge Information Instructions: Viral Gastroenteritis, Adult, [id number], Food Choices to Help Relieve Diarrhea, Adult, Diarrhea, Adult, [id number] Referrals: Wendy Padilla PA-C [Primary Care Provider] - Forms: ED Department Discharge Additional Instructions: You were seen in the emergency department today with complaints of a sore throat, diarrhea x2 days, and a rash to arms and legs. Sore throat is likely due to postnasal drip associated with seasonal allergies. Recommend that you take Zyrtec daily. You can also try to take Flonase nasal spray with the Zyrtec. This should help control the runny nose. Labs were completed today and these were all essentially unremarkable. There is no sign of any infection. Stool sample was ordered however you were not able to produce a stool while in the emergency department. Recommend that you collect this sample at home and bring it back to the hospital so that we can do further testing. If you do not hear from us the test is negative however if there is any positivity in the test you will receive a phone call. Recommend that you start taking a daily probiotic as this will help promote the good bacteria in your body. Recommend that you stick to a fairly bland diet such as bananas, rice, applesauce and toast. Stay away from all dairy products until the diarrhea as resolved because this can cause further GI upset. In regards to the red spots noted to your arms and legs. Discontinue the triamcinolone cream. You can take Benadryl 1 tab every 6-8 hours as needed. This should likely stop the histamine response. The Zyrtec that you are taking will help with this as well. You may also try some topical Benadryl cream or hydrocortisone cream. Follow-up with your primary care provider, Wedny Padilla, at her next available appointment. Should your condition worsen or change, do not hesitate returning to the emergency department. Your urine test was negative. Sepsis Event Note (ED) - Evaluation Sepsis Screening Result: No Definite Risk
== END 2020-08-09 14:46 | disposition home or self-care (01) ==
LOC: JD.ED 11:03
DX: R19.7 Diarrhea, unspecified (principal); Z20.822 Contact with and (suspected) exposure to COVID-19; Z88.7 Allergy status to serum and vaccine
CPT/HCPCS: 36415; 80053; 81025; 83735; 85025; 86140; 99284; U0002

== ENCOUNTER 2020-09-19 01:28 | Emergency (ER) | payer BC ==
[2020-09-19 01:53] VITALS: BP 130/90; PULSE 74
--- NOTE | 2020-09-19 02:39 | EDM.PDOC ---
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 Tolliver is a very pleasant 20-year-old woman who now presents the ED stating that she has been on the Depo-Provera injection for the past 7 months, approximately, with her most recent injection on 08/29/2020, followed by placement of a control patch on 09/15/2020, administered by her PCP. She states that she has been experiencing pelvic cramps ever since her Depo-Provera injection, worse over the last 2 days, along with spotting for the past week. She a cknowledges that she has had pelvic cramps with Depo-Provera in the past, but nothing this bad. She states that the pain made her vomit once last night. She states that she took 1 tablet (200 mg) of Motrin yesterday, and a 600 mg tablet of prescription ibuprofen at 19:00 last night, but that neither helped. She denies urinary symptoms. No recent fever. Here in the ED, the patient is found to be hemodynamically stable, afebrile, saturating 100% on room air. She appears to be a bit anxious, but in no acute distress. Other than the pelvic cramps and spotting, the patient denies having a recent fever, chills, sore throat, ear pain, nasal or sinus congestion, cough, dyspnea, chest pain, palpitations, constipation, diarrhea, urinary symptoms, recent weight gain or weight loss, recent bloody bowel movements or black bowel movements, recent joint aches, headaches, or rashes. The patient's PCP is ESTEBAN Henriquez. Her [employer] Developer Analyst is Dr. Ana Cristina Almendarez. Lower Abdomen Pain Score (Numeric/FACES): 7 - Related Data Allergies Allergy/AdvReac Type Severity Reaction Status Date / Time Influenza Virus Vaccines Allergy Severe Swelling Verified 09/19/20 01:53 Home Meds: Home Meds medroxyPROGESTERone Acetate [Depo-Provera] 150 mg IM ASDIRECTED 06/16/18 [History] Control Patch. 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) - Infectious Disease History Infectious Disease History: Reports: Chicken Pox, Novel Coronavirus - Past Surgical History Female Surgical History: Reports: Other (See Below) (Ovarian cystectomy x 1) Social & Family History - Tobacco Use Tobacco Use Status *Q: Never Tobacco User Second Hand Smoke Exposure: No - Caffeine Use Caffeine Use: Reports: None Caffeine Use Comment: drinks coffee once a month - Alcohol Use Alcohol Use History: No - Recreational Drug Use Recreational Drug Use: No - Living Situation & Occupation Living situation: Reports: Single, with Significant Other (Boyfriend) Occupation: Employed ([employer]) ED ROS GENERAL - Review of Systems Review Of Systems: Comprehensive ROS is negative, except as noted in HPI. ED EXAM, RENAL/ - Physical Exam Exam: See Below Exam Limited By: No Limitations General Appearance: Alert, No Apparent Distress, Thin Eye Exam: Bilateral Eye: EOMI, Normal Inspection Ears: Normal External Exam, Hearing Grossly Normal Nose: Normal Inspection Throat/Mouth: Normal Inspection, Normal Lips, Normal Voice, No Airway Compromise Head: Atraumatic, Normocephalic Neck: Normal Inspection, Full Range of Motion Respiratory/Chest: No Respiratory Distress, Lungs Clear, Normal Breath Sounds, No Accessory Muscle Use Cardiovascular: Normal Peripheral Pulses, Regular Rate, Rhythm, No Edema, No Gallop, No JVD, No Murmur, No Rub GI/Abdominal: Normal Bowel Sounds, Soft, No Organomegaly, No Distention, No Abnormal Bruit, No Mass, Tender (mild, suprapubically only, nontender elsewhere) Back Exam: Normal Inspection, Full Range of Motion, NT Extremities: Normal Inspection, Normal Range of Motion, No Pedal Edema, Normal Capillary Refill Neurological: Alert, Oriented, Normal Cognition, No Motor/Sensory Deficits Psychiatric: Normal Affect Skin Exam: Warm, Dry, Intact, Normal Color, No Rash Course - Vital Signs Last Recorded V/S: Last Vital Signs Temp 36.1 C 09/19/20 01:50 Pulse 74 09/19/20 01:50 Resp 16 09/19/20 01:50 BP 130/90 09/19/20 01:50 Pulse Ox 100 09/19/20 01:50 - Orders/Labs/Meds Labs: Laboratory Tests 09/19/20 09/19/20 Range/Units 02:39 02:39 Urine Color Yellow (Yellow) Urine Appearance Clear (Clear) Urine pH 6.0 (5.0-8.0) Ur Specific [place] 1.015 (1.005-1.030) Urine Protein Negative (Negative) Urine Glucose (UA) Negative (Negative) Urine Ketones Negative (Negative) Urine Occult Blood Negative (Negative) Urine Nitrite Negative (Negative) Urine Bilirubin Negative (Negative) Urine Urobilinogen 0.2 (0.2-1.0) Ur Leukocyte Esterase Negative (Negative) Urine RBC 0-5 (0-5) /hpf Urine WBC 0-5 (0-5) /hpf Ur Epithelial Cells 0-5 (0-5) /hpf Urine Bacteria Not seen (FEW) /hpf Urine Mucus Not seen (FEW) /hpf Urine HCG, Qual Negative (NEGATIVE) - Re-Assessments/Exams Free Text/Narrative Re-Assessment/Exam: 09/19/20 02:32 As above, the patient has been on Depo-Provera for approximately 7 months, with her most recent injection on 08/29/2020, followed by a control patch placed on 09/15/2020. She reports that she has been having lower abdominal cramps since her last Depo injection, worse for the last 2 days, with spotting for the past week. No urinary symptoms. Her symptoms have not improved despite taking 200 mg of ibuprofen yesterday and 600 mg of ibuprofen last night. On examination, she has some suprapubic tenderness, otherwise, her physical exam is unremarkable. I have ordered a urinalysis and urine test. 09/19/20 03:33 The patient's urinalysis is unremarkable. Her urine test is negative. 09/19/20 03:34 Test results discussed with the patient. As above, there is no suggestion of a UTI. I will have the patient follow-up with Dr. Almendarez to discuss treatment options. The patient is anxious to go home. Departure - Departure Time of Disposition: 03:35 Disposition: Home, Self-Care 01 Condition: Good Clinical Impression: Pelvic cramping - Discharge Information *PRESCRIPTION DRUG MONITORING PROGRAM REVIEWED*: Not Applicable *COPY OF PRESCRIPTION DRUG MONITORING REPORT IN PATIENT CHARMAINE: Not Applicable Referrals: Wendy Padilla PA-C [Primary Care Provider] - Ana Cristina Almendarez MD [Physician] - Forms: ED Department Discharge Additional Instructions: You were seen in the emergency room for pelvic cramps ever since your most recent Depo-Provera shot on 08/29/2020, worse for the past 2 days, with spotting for about a week and vomiting last night. Work-up in the ER included a urinalysis and urine test, both of which were completely normal. There is no sign of a urinary tract infection. We recommend you follow-up with your [employer] Developer Analyst, Dr. Ana Cristina Almendarez, at the next available appointment, to discuss treatment options. If any other problems, please do not hesitate to return to the ER. Sepsis Event Note (ED) - Evaluation Sepsis Screening Result: No Definite Risk - Focused Exam Vital Signs: Vital Signs Temp Pulse Resp BP Pulse Ox 09/19/20 01:50 36.1 C 74 16 130/90 100
== END 2020-09-19 03:44 | disposition home or self-care (01) ==
LOC: JD.ED 01:28
DX: R10.2 Pelvic and perineal pain (principal); Z86.16 Personal history of COVID-19; Z88.7 Allergy status to serum and vaccine
CPT/HCPCS: 81001; 81025; 99283; 99284

== ENCOUNTER 2021-02-27 08:56 | Day surgery (SDC) | payer BC ==
[~2021-02-27 08:56] MED LIST: Lactated Ringers 1,000 ML IV SCH; Lidocaine 1%/Sod Bicarbonate in NS 8.4% 1 ML Syringe IDERM PRN; Sodium Chloride 0.9% 10 ML Syringe FLUSH SCH
--- NOTE | 2021-02-27 09:26 | PCM.PREANE ---
Preanesthetic Assessment - Procedure Proposed Procedure: laparoscopy - Anesthesia/Transfusion/Family Hx Anesthesia History: Prior Anesthesia Without Reaction Family History of Anesthesia Reaction: No Transfusion History: No Prior Transfusion(s) - Review of Systems General: No Symptoms Pulmonary: No Symptoms Cardiovascular: No Symptoms Gastrointestinal: Abdominal Pain (cramping-6 months) Neurological: No Symptoms Other: Reports: None - Physical Assessment NPO Status Date: 02/26/21 NPO Status Time: 19:00 Vital Signs: 113/75 84 99% 14 98.6 Height: 4 ft 11 in Weight: 34 kg ASA Class: 1 Mental Status: Alert & Oriented x3 Airway Class: Mallampati = 1 Dentition: Reports: Normal Dentition Thyro-Mental Finger Breadths: 3 Mouth Opening Finger Breadths: 3 ROM/Head Extension: Full Lungs: Clear to Auscultation, Normal Respiratory Effort Cardiovascular: Regular Rate, Regular Rhythm - Lab Values: Laboratory Last Values Urine HCG, Qual Negative (NEGATIVE) 02/27/21 08:53 - Allergies Allergies/Adverse Reactions: Allergies Allergy/AdvReac Type Severity Reaction Status Date / Time Influenza Virus Vaccines Allergy Severe Swelling Verified 09/19/20 01:53 - Blood Blood Available: No - Acknowledgements Anesthesia Type Planned: General Anesthesia Pt an Appropriate Candidate for the Planned Anesthesia: Yes Alternatives and Risks of Anesthesia Discussed w Pt/Guardian: Yes Pt/Guardian Understands and Agrees with Anesthesia Plan: Yes PreAnesthesia Questionnaire - Past Health History Medical/Surgical History: Denies Medical/Surgical History Cardiovascular History: Reports: None Respiratory History: Reports: None Gastrointestinal History: Reports: None Genitourinary History: Reports: Other (See Below) Other Genitourinary History: ovarian cyst 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) Musculoskeletal History: Reports: None Oncologic (Cancer) History: Reports: None - Infectious Disease History Infectious Disease History: Reports: Chicken Pox, Novel Coronavirus - Past Surgical History Female Surgical History: Reports: Other (See Below) (Ovarian cystectomy x 1) - SUBSTANCE USE Tobacco Use Status *Q: Never Tobacco User Tobacco Use Within Last Twelve Months: No Second Hand Smoke Exposure: No Days Per Week of Alcohol Use: 0 Recreational Drug Use History: No - HOME MEDS Home Medications: Home Meds medroxyPROGESTERone Acetate [Depo-Provera] 150 mg IM ASDIRECTED 06/16/18 [History] Control Patch. 1 patch TOP ASDIRECTED 09/19/20 [History] - CURRENT (IN HOUSE) MEDS Current Meds: Current Medications Lactated Ringer's (Ringers, Lactated) 1,000 mls @ 125 mls/hr IV ASDIRECTED [facility] Stop: 02/27/21 23:00 Lidocaine/Sodium Bicarbonate (Lidocaine 1%/Sod Bicarbonate In Ns 8.4% 1 Ml Syringe) 0.25 ml IDERM ONETIME PRN PRN Reason: Prior to IV Start Stop: 02/27/21 23:00 Sodium Chloride (Sodium Chloride 0.9% 10 Ml Syringe) 10 ml FLUSH 0900,2100 [facility] Stop: 02/27/21 23:00
[2021-02-27] MEDS ORDERED: Midazolam 1 MG/ML 2 ML SDV ONE (09:53)
[2021-02-27] MEDS ORDERED: Propofol 200 MG/20 ML SDV ONE (09:53)
[2021-02-27] MEDS ORDERED: fentaNYL 250 MCG/5 ML SDV ONE (09:53)
[2021-02-27] MEDS ORDERED: Dexamethasone 4 MG/ML 5 ML MDV ONE (09:53)
[2021-02-27] MEDS ORDERED: Ketorolac 30 MG/ML SDV ONE (09:53)
[2021-02-27] MEDS ORDERED: Ondansetron 4 MG/2 ML SDV ONE (09:53)
[2021-02-27] MEDS ORDERED: Rocuronium 50 MG/5 ML Vial ONE (09:54)
[2021-02-27] MEDS ORDERED: Bupivacaine 0.5% 30 ML SDV ONE (10:03)
[2021-02-27] MEDS ORDERED: ceFAZolin 1 GM Vial ONE (10:09)
[2021-02-27] MEDS ORDERED: Sodium Chloride 0.9% 100 ML ONE (11:23)
[2021-02-27] MEDS ORDERED: Dexmedetomidine 200 MCG/2 ML SDV ONE (11:23)
[2021-02-27] MEDS ORDERED: fentaNYL 100 MCG/2 ML SDV IVPUSH PRN (12:35)
[2021-02-27] MEDS ORDERED: Ondansetron 4 MG/2 ML SDV IVPUSH PRN ×2 (12:35→12:42)
--- NOTE | 2021-02-27 12:35 | PCM.POSTAN ---
POST ANESTHESIA ASSESSMENT - MENTAL STATUS Mental Status: Alert, Oriented - VITAL SIGNS Vital Signs: Last Vital Signs Temp 98.6 F 02/27/21 08:46 Pulse 84 02/27/21 08:46 Resp 14 02/27/21 08:46 BP 113/75 02/27/21 08:46 Pulse Ox 99 02/27/21 08:46 Vital signs at 1219: 116/64 HR 94 RR 13 97% RA 97.6 - RESPIRATORY Respiratory Status: Respiratory Rate WNL, Airway Patent, O2 Saturation Stable - CARDIOVASCULAR CV Status: Pulse Rate WNL, Blood Pressure Stable - GASTROINTESTINAL GI Status: No Symptoms - PAIN Pain Score: 1 - POST OP HYDRATION Hydration Status: Adequate & Stable
[2021-02-27] MEDS ORDERED: Acetaminophen/oxyCODONE 325-5 MG Tab PO PRN (12:42)
--- NOTE | 2021-02-27 12:51 | PCM.OPNOTE ---
- General Post-Op/Procedure Note Date of Surgery/Procedure: 02/27/21 Operative Procedure(s): Laparoscopy, Lysis of pelvic adhesions, biopsy of peritoneum. Findings: Patient was noted to have multiple sites of hemosiderin deposition possibly consistent with endometriosis. Several other sites appear to be active endometriosis in the anterior and posterior cul-de-sac. Hemosiderin involving both ovaries. Left greater than right. Right ovary was adhered posteriorly to the right pelvic sidewall. Uterus, left ovary, bilateral fallopian tubes, appendix, liver edge and spleen were visualized and appeared normal. Pre Op Diagnosis: Right lower quadrant pelvic pain Post-Op Diagnosis: Same with endometriosis, pelvic adhesions. Anesthesia Technique: General ET Tube, Local (Marcaine 0.5%total of approximately 8 cc.) Primary Surgeon: Satnam Marie Secondary Surgeon: Holland Nunez Anesthesia Provider: Gabriela Bradford Cash Teller: Marta Umana Reason Cash Teller Was Necessary: Retraction, assistance, patient safety, quality of care. Pathology: Peritoneal biopsy of the anterior cul-de-sac. Fluid Replacement, Intraop: 850 EBL in mLs: 5 Drain/Tube Comments:: Indwelling bladder catheter during surgery only. Condition: Good Free Text/Narrative:: Surgery duration: 25 minutes. Procedure: The patient was taken to the operating room and placed in supine position on the operative table. She had sequential compression stockings in place for DVT prophylaxis and had been given weight appropriate dose of Ancef IV for infection prophylaxis. She was administered general endotracheal anesthesia. After administration of anesthesia the patient was placed in dorsal lithotomy position and prepped and draped in usual fashion. An indwelling bladder catheter was placed. Infraumbilical incision site and suprapubic site were then infiltrated with approximately 3-4 mL of Marcaine 0.5%. 5 mm incisions were made in these areas. Verres needle was placed in the infraumbilical incision site and pneumoperitoneum was established was in 2 L of CO2. The laparoscopic sleeve was then placed as was the scope. Under direct visualization the suprapubic site was developed with a 5 mm port as was a left lateral port site.. Pelvis was evaluated findings as above. Anterior cul-de-sac showed some small mulberry colored lesions present these were biopsied. Anatomy otherwise was as described above. The right ovary was then elevated and adhesions adherent to the pelvic sidewall posterior were lysed. This allowed for free movement of the right ovary. Left ovary was unremarkable with the exception of hemosiderin deposition on the surface. To anterior cul-de-sac biopsies were obtained and sent in the same specimen container. After this was performed the pneumoperitoneum was reversed. The lower sleeve was been removed under direct visualization.. The upper port was removed and the incisions were closed with single subcuticular interrupted suture of 3-0 Monocryl. The incisions were further approximated with Dermabond skin glue. The Tellez catheter removed. Patient was returned to the supine position and awakened from general endotracheal anesthesia. She left the operating room in good condition.
--- NOTE | 2021-02-27 12:57 | PCM48HPAN ---
Post Anesthesia Note - EVALUATION WITHIN 48HRS OF ANESTHETIC Vital Signs in Normal Range: Yes Patient Participated in Evaluation: Yes Respiratory Function Stable: Yes Airway Patent: Yes Cardiovascular Function Stable: Yes Hydration Status Stable: Yes Pain Control Satisfactory: Yes Nausea and Vomiting Control Satisfactory: Yes Mental Status Recovered: Yes Vital Signs: Last Vital Signs Temp 208.0 F H 02/27/21 12:53 Pulse 84 02/27/21 08:46 Resp 14 02/27/21 12:53 BP 92/56 L 02/27/21 12:53 Pulse Ox 100 02/27/21 12:53
[2021-02-27 13:29] VITALS: PULSE 61
[2021-02-27 14:34] VITALS: BP 102/65
[2021-02-27] MEDS ORDERED: Ketorolac 30 MG/ML SDV IVPUSH SCH (16:00)
[2021-02-27] MEDS ORDERED: Ibuprofen 600 MG Tab PO PRN (22:00)
== END 2021-02-27 14:25 | disposition home or self-care (01) ==
LOC: JD.SDS 08:56
PROVIDERS: ATTEND Obstetrics & Gynecology
DX: N80.9 Endometriosis, unspecified (principal); N73.6 Female pelvic peritoneal adhesions (postinfective); Z98.890 Other specified postprocedural states
CPT/HCPCS: 49321; 81025; J0690; J1100; J1885; J2250; J2405; J2704; J2710; J3010; J3490; J7120; 00840

== ENCOUNTER 2021-06-27 21:14 | Emergency (ER) | payer BC ==
[2021-06-27 21:27] VITALS: BP 142/91; PULSE 88
== END 2021-06-27 23:19 | disposition home or self-care (01) ==
LOC: JD.ED 21:14
DX: O03.9 Complete or unspecified spontaneous abortion without complication (principal); Z88.7 Allergy status to serum and vaccine; Z86.16 Personal history of COVID-19
CPT/HCPCS: 36415; 76817; 76817-26; 84702; 85027; 86900; 86901; 99284-25

== ENCOUNTER 2022-10-24 10:42 | Emergency (ER) | payer OTHER, BC ==
[2022-10-24 11:02] VITALS: BP 115/92; PULSE 72
[2022-10-24] MEDS ORDERED: Sodium Chloride 0.9% 10 ML Syringe FLUSH PRN (11:10)
[2022-10-24 11:38] LABS: BASOPHILS PERCENT AUTO 0.6 % (0.0-1.0); EOSINOPHILS ABSOLUTE AUTO 0.1 K/mm3 (0.0-0.4); EOSINOPHILS PERCENT AUTO 1.4 % (0.0-6.0); HEMATOCRIT 49.6 % (37.0-47.0); HEMOGLOBIN 16.7 gm/dl (12.0-16.0); IMMATURE GRAN ABSOLUTE AUTO 0.01 K/mm3 (0.00-0.05); IMMATURE GRAN PERCENT AUTO 0.2 % (0.0-0.4); LYMPHOCYTES ABSOLUTE AUTO 1.9 K/mm3 (1.0-4.8); LYMPHOCYTES PERCENT AUTO 29.7 % (24.0-44.0); MEAN CORPUSCULAR HEMOGLOBIN 30.4 pg (28.0-32.0); MEAN CORPUSCULAR HGB CONC 33.7 g/dl (32.0-36.0); MEAN CORPUSCULAR VOLUME 90.3 fl (83.0-99.0); MEAN PLATELET VOLUME 10.2 fl (9.4-12.3); MONOCYTES ABSOLUTE AUTO 0.5 K/mm3 (0.0-0.8); MONOCYTES PERCENT AUTO 7.3 % (0.0-8.0); NEUTROPHILS ABSOLUTE AUTO 3.8 K/mm3 (1.8-7.7); NEUTROPHILS PERCENT AUTO 60.8 % (41.0-71.0); PLATELET COUNT,PLT 171 K/mm3 (150-400); RED BLOOD CELL COUNT 5.49 M/mm3 (4.10-5.30); WHITE BLOOD CELL COUNT,WBC 6.26 K/mm3 (3.9-11.3)
[2022-10-24 11:40] LABS: APPEARANCE,URINE CLEAR (Clear); BILIRUBIN,URINE NEGATIVE (Negative); COLOR,URINE YELLOW (Yellow); GLUCOSE,URINE NEGATIVE (Negative); KETONES,URINE NEGATIVE (Negative); LEUKOCYTE ESTERASE,URINE NEGATIVE (Negative); NITRITE,URINE NEGATIVE (Negative); OCCULT BLOOD,URINE TRACE-INTACT (Negative); PH,URINE 5.5 (5.0-8.0); PROTEIN,URINE 2+ (Negative); UROBILINOGEN,URINE 0.2 (0.2-1.0)
[2022-10-24 11:57] LABS: A/G RATIO 1.4 (1-2); ANION GAP 14.9 (5-15); BILIRUBIN TOTAL 0.7 mg/dL (0.2-1.0); CALCIUM 10.2 mg/dL (8.5-10.1); CREATININE 1.1 mg/dL (0.55-1.02); EST CRCL DRUG DOSING (CG) 47.96 mL/min; POTASSIUM,K 3.9 mEq/L (3.5-5.1); PROTEIN TOTAL,TP 8.5 g/dl (6.4-8.2)
[2022-10-24 12:00] LABS: BACTERIA,URINE FEW /hpf (FEW); RBC,URINE 0-5 /hpf (0-5); SQUAMOUS EPITHELIAL CELLS,UR 0-5 /hpf (0-5); WBC,URINE 0-5 /hpf (0-5)
[2022-10-24 12:01] LABS: MUCUS,URINE MODERATE /hpf (FEW)
[2022-10-24] MEDS ORDERED: Magnesium Hydroxide 400 MG/5 ML Susp 30 ML Cup PO ONE (15:09)
[2022-10-24] MEDS ORDERED: Bisacodyl 5 MG Tab PO ONE (15:09)
== END 2022-10-24 15:30 | disposition home or self-care (01) ==
LOC: JD.ED 10:42
DX: K59.00 Constipation, unspecified (principal); Z88.7 Allergy status to serum and vaccine; Z86.16 Personal history of COVID-19
CPT/HCPCS: 36415; 74019; 76830; 80053; 81001; 84703; 85025; 99284; A9270

== ENCOUNTER 2022-12-26 13:12 | Emergency (ER) | payer OTHER, BC ==
[2022-12-26 14:15] LABS: BASOPHILS ABSOLUTE AUTO 0.1 K/mm3 (0.0-0.2); BASOPHILS PERCENT AUTO 0.8 % (0.0-1.0); EOSINOPHILS ABSOLUTE AUTO 0.1 K/mm3 (0.0-0.4); EOSINOPHILS PERCENT AUTO 2.1 % (0.0-6.0); HEMATOCRIT 48.3 % (37.0-47.0); HEMOGLOBIN 16.6 gm/dl (12.0-16.0); IMMATURE GRAN ABSOLUTE AUTO 0.02 K/mm3 (0.00-0.05); IMMATURE GRAN PERCENT AUTO 0.3 % (0.0-0.4); LYMPHOCYTES ABSOLUTE AUTO 2.2 K/mm3 (1.0-4.8); LYMPHOCYTES PERCENT AUTO 33.7 % (24.0-44.0); MEAN CORPUSCULAR HEMOGLOBIN 29.8 pg (28.0-32.0); MEAN CORPUSCULAR HGB CONC 34.4 g/dl (32.0-36.0); MEAN PLATELET VOLUME 10.3 fl (9.4-12.3); MONOCYTES ABSOLUTE AUTO 0.6 K/mm3 (0.0-0.8); MONOCYTES PERCENT AUTO 8.5 % (0.0-8.0); NEUTROPHILS ABSOLUTE AUTO 3.6 K/mm3 (1.8-7.7); NEUTROPHILS PERCENT AUTO 54.6 % (41.0-71.0); PLATELET COUNT,PLT 229 K/mm3 (150-400); RED BLOOD CELL COUNT 5.57 M/mm3 (4.10-5.30); WHITE BLOOD CELL COUNT,WBC 6.55 K/mm3 (3.9-11.3)
[2022-12-26 14:16] LABS: MEAN CORPUSCULAR VOLUME 86.7 fl (83.0-99.0)
[2022-12-26 14:35] LABS: A/G RATIO 1.4 (1-2); ALANINE AMINOTRANSFERASE,ALT 18 U/L (14-59); ALBUMIN 4.8 g/dl (3.4-5.0); ALKALINE PHOSPHATASE 55 U/L (46-116); ANION GAP 15.6 (5-15); ASPARTATE AMNIOTRANSFERASE,AST 15 U/L (15-37); BILIRUBIN TOTAL 0.7 mg/dL (0.2-1.0); BLOOD UREA NITROGEN,BUN 8 mg/dL (7-18); BUN/CREATININE RATIO 6.7 (14-18); CALCIUM 9.7 mg/dL (8.5-10.1); CARBON DIOXIDE,CO2 26 mEq/L (21-32); CHLORIDE,CL 103 mEq/L (98-107); CREATININE 1.2 mg/dL (0.55-1.02); EST CRCL DRUG DOSING (CG) 45.18 mL/min; ESTIMATED GFR 66 mL/min (>60); GLUCOSE RANDOM 81 mg/dL (70-99); POTASSIUM,K 3.6 mEq/L (3.5-5.1); PROTEIN TOTAL,TP 8.3 g/dl (6.4-8.2); SODIUM,NA 141 mEq/L (136-145)
[2022-12-26 14:40] LABS: TROPONIN I HIGH SENSITIVITY < 4 pg/mL (<=51)
[2022-12-26] MEDS ORDERED: Ondansetron 4 MG Tab.DIS PO ONE (14:44)
[2022-12-26 14:59] LABS: APPEARANCE,URINE CLEAR (Clear); BILIRUBIN,URINE NEGATIVE (Negative); COLOR,URINE YELLOW (Yellow); GLUCOSE,URINE NEGATIVE (Negative); KETONES,URINE NEGATIVE (Negative); LEUKOCYTE ESTERASE,URINE TRACE (Negative); NITRITE,URINE NEGATIVE (Negative); OCCULT BLOOD,URINE NEGATIVE (Negative); PROTEIN,URINE 2+ (Negative); UROBILINOGEN,URINE 0.2 (0.2-1.0)
[2022-12-26 15:07] LABS: BACTERIA,URINE MODERATE /hpf (FEW); MUCUS,URINE MODERATE /hpf (FEW); RBC,URINE 0-5 /hpf (0-5)
[2022-12-26] MEDS ORDERED: Sodium Chloride 0.9% 1,000 ML IV SCH (15:15)
[2022-12-26 17:03] VITALS: BP 116/85; PULSE 79
== END 2022-12-26 16:45 | disposition home or self-care (01) ==
LOC: JD.ED 13:12
DX: R00.0 Tachycardia, unspecified (principal); R11.0 Nausea; R07.9 Chest pain, unspecified; Z79.899 Other long term (current) drug therapy; Z88.7 Allergy status to serum and vaccine
CPT/HCPCS: 36415; 71046; 80053; 81001; 81025; 84484; 85025; 85379; 87086; 93005; 96360; 99285; A9270; J7030